=== PATIENT | female | born 1990 | race Caucasian/White ===

== ENCOUNTER 2019-05-25 10:46 | Day surgery (SDC) | payer BC ==
[~2019-05-25] VITALS: Ht 175.3 cm; Wt 78.3 kg
[2019-05-25 11:27] VITALS: BP 115/47
[2019-05-25] MEDS ORDERED: LACTATED RINGERS 1,000 ML IV SCH (11:36)
[2019-05-25] MEDS ORDERED: BUPR-173 PO (11:38)
[2019-05-25] MEDS ORDERED: IBUP-1223 PO (11:38)
[2019-05-25] MEDS ORDERED: ASPI-650 PO (11:38)
[2019-05-25 11:44] LABS: HCG UR SG 1.014 (1.003-1.030)
[2019-05-25] MEDS ORDERED: GABAPENTIN 300 MG CAPSULE PO ONE (12:00)
[2019-05-25] MEDS ORDERED: SCOPOLAMINE PATCH, 1.5MG PATCH.TD72 TD ONE (12:00)
[2019-05-25] MEDS ORDERED: ACETAMINOPHEN 500 MG TABLET PO ONE (12:00)
[2019-05-25] MEDS ORDERED: FENTANYL PF 250 MCG/5ML ONE (12:43)
[2019-05-25] MEDS ORDERED: MIDAZOLAM 1 MG/ML, 2ML ONE (12:43)
[2019-05-25] MEDS ORDERED: DEXAMETHASONE 4 MG/ML, 1ML ONE (12:45)
[2019-05-25] MEDS ORDERED: ONDANSETRON 2MG/ML, 2ML ONE (12:45)
[2019-05-25] MEDS ORDERED: PROPOFOL 10 MG/ML, 20ML ONE (12:45)
[2019-05-25] MEDS ORDERED: CEFAZOLIN 1,000 MG ONE (12:45)
[2019-05-25] MEDS ORDERED: KETOROLAC 30 MG/1 ML ONE (12:45)
[2019-05-25] MEDS ORDERED: HYDROmorphone 2 MG/ML, 1ML IVPush PRN (14:00)
[2019-05-25] MEDS ORDERED: MORPHINE SULFATE 4 MG/ML, 1ML IVPush PRN (14:00)
[2019-05-25] MEDS ORDERED: LABETALOL 5MG/ML, 20ML IV PRN (14:00)
[2019-05-25] MEDS ORDERED: hydrALAzine 20 MG/ML, 1ML IV PRN (14:00)
[2019-05-25] MEDS ORDERED: OXYcodone 5 MG/5 ML ORAL.SOL UDC PO PRN (14:00)
[2019-05-25] MEDS ORDERED: PROMETHAZINE 25 MG/ML, 1ML IV PRN (14:00)
[2019-05-25] MEDS ORDERED: FENTANYL PF 100 MCG/2ML IV PRN (14:00)
[2019-05-25] MEDS ORDERED: HALOPERIDOL 5 MG/ML IV PRN (14:00)
[2019-05-25] MEDS ORDERED: MEPERIDINE/PF 25MG/ML,1ML IVPush PRN (14:00)
[2019-05-25] MEDS ORDERED: MEPERIDINE/PF 25MG/ML,1ML ONE (15:08)
[2019-05-25] MEDS ORDERED: OXYcodone 5 MG/5 ML ORAL.SOL UDC ONE (15:09)
[2019-05-25] MEDS ORDERED: HALOPERIDOL 5 MG/ML ONE (15:15)
== END 2019-05-25 18:15 | disposition home or self-care (01) ==
LOC: OUT 10:46
PROVIDERS: ATTEND Orthopaedic Surgery
DX: S82.871A Displaced pilon fracture of right tibia, initial encounter for closed fracture (principal); S82.831A Other fracture of upper and lower end of right fibula, initial encounter for closed fracture; Z88.6 Allergy status to analgesic agent; Z91.040 Latex allergy status; Z79.82 Long term (current) use of aspirin; X58.XXXA Exposure to other specified factors, initial encounter; Y93.89 Activity, other specified; Y92.89 Other specified places as the place of occurrence of the external cause; Y99.8 Other external cause status
CPT/HCPCS: 27828; 64445; 64447; 73590; 76000; 81025; C1713; J0690; J1100; J1885; J2175; J2250; J2405; J2704; J3010; J7120